=== PATIENT | female | born 1935 | race Caucasian/White ===

== ENCOUNTER 2017-09-02 15:15 | Outpatient (CLI) | payer MEDICARE, BC | END 2017-09-02 15:16 | disposition home or self-care (01) | LOC: BICRAD 15:15 | PROVIDERS: ATTEND Internal Medicine | DX: R06.00 Dyspnea, unspecified (principal); R11.0 Nausea; M47.816 Spondylosis without myelopathy or radiculopathy, lumbar region; M41.126 Adolescent idiopathic scoliosis, lumbar region | CPT/HCPCS: 71020; 74000 ==

== ENCOUNTER 2018-03-19 09:59 | Inpatient (IN) | payer MEDICARE, BC ==
[2018-03-19] MEDS ORDERED: Ondansetron ODT 4 MG TAB ONE (10:36)
[2018-03-19 11:16] LABS: #Eosinphils 0.1 thou/uL (0.0-0.7); #Lymphocytes 1.6 thou/uL (1.20-3.40); #Monocytes 1.3 thou/uL (0.11-0.59); #Neutrophils 15.2 thou/uL (1.40-6.50); %Basophils 0.1 % (0.0-1.0); %Eosinophils 0.3 % (0.0-10.0); %Lymphocytes 8.6 % (21.0-51.0); %Monocytes 7.3 % (0.0-10.0); %Neutrophils 83.8 % (42.0-75.0); Hemoglobin 16.3 g/dL (12.0-16.0); Mean Corpuscular HGB CONC 32.9 g/dL (32.0-36.0); Mean Corpuscular Volume 91.4 fL (78.0-98.0); Mean Platelet Volume 6.5 fL (7.4-10.4); Platelet Count 210 thou/uL (130-400); RBC Distribution Width 12.2 % (11.5-14.5); Red Blood Cell (RBC) Count 5.41 mill/uL (4.20-5.40); White Blood Cell (WBC) Count 18.2 thou/uL (4.8-10.8)
[2018-03-19 11:30] LABS: Bilirubin Negative (Negative); Blood, Urine Negative (Negative); Clarity CLOUDY (Clear); Glucose, Urine (Dipstick) Negative (Negative); Leukocyte Large (Negative); Nitrite Negative (Negative); Protein, Urine (Dipstick) Trace mg/dL (Neg-Trace); Specific Gravity, Urine 1.013 (1.002-1.036); Urobilinogen 0.2 mg/dL (0.2-1.0); pH, Urine 7.5 (5.0-9.0)
[2018-03-19 11:32] LABS: Hyaline Casts/LPF 4-6 HYALINE CAST LPF (0-3 Hyaline); Pathc Cast-AUWi Flag 0.72 (0-2.49)
[2018-03-19 11:44] LABS: ALT (SGPT) 23 U/L (8-55); AST (SGOT) 18 U/L (5-34); Albumin 4.3 g/dL (3.4-4.8); Alkaline Phosphatase 71 U/L (40-150); Anion Gap 12 mmol/L (10-20); BUN (Urea Nitrogen) 18 mg/dL (9.8-20.1); Bilirubin, Total 2.1 mg/dL (0.2-1.2); Calc. Creatinine Clearance 0 mL/min (70-130); Calcium 11.6 mg/dL (7.8-10.44); Carbon Dioxide 34 mmol/L (23-31); Chloride 97 mmol/L (98-107); Estimated GFR-MDRD 44; Globulin 2.8 g/dL (2.4-3.5); Glucose 119 mg/dL (83-110); Lipase 10 U/L (8-78); Potassium 4.1 mmol/L (3.5-5.1); Protein, Total 7.1 g/dL (6.0-8.3); Sodium 139 mmol/L (136-145)
[2018-03-19 11:48] LABS: RBC/HPF None Seen HPF (0-3)
[2018-03-19 11:49] LABS: Bacteria/HPF 3+ HPF (None Seen)
[2018-03-19] MEDS ORDERED: cefTRIAXone\\ROCEPHIN 1 GM VIAL ONE (12:55)
--- NOTE | 2018-03-19 13:02 | CT ---
CT ABDOMEN AND PELVIS WITH CONTRAST: HISTORY: Intermittent abdominal pain since yesterday after lunch with nausea and vomiting four times last nigh t. COMPARISON: None. TECHNIQUE: Multiple contiguous axial images were obtained in a CT of the abdomen and pelvis with contrast. Greta nal reformats were performed and p.o. contrast was administered. FINDINGS: An anastomotic stable line is seen within a loop of small bowel. There is a small bowel feces sign a djacent to this anastomosis. There is slight enlargement of the small bowel loops proximal to this a nastomosis, which may be secondary to a partial small bowel obstruction. Slight inflammatory change is also seen adjacent to the bowel anastomosis. There are scattered diverticula in the colon. The a ppendix is unremarkable. The distal small bowel loops are decompressed. The liver, gallbladder, right kidney, adrenal glands, spleen, and pancreas are unremarkable. A small cyst is seen in the left kidney. No free air is seen in the abdomen or pelvis. A small amount of f ree fluid is seen in the pelvis. A pessary is seen within the vagina. The patient is status post hysterectomy. No abdominal or pelvi c lymphadenopathy is seen. The osseous structures, abdominal wall soft tissues, and visualized inferior thorax are unremarkable. IMPRESSION: 1. The patient has had prior bowel surgery. There appears to be a partial small bowel obstruction a t the anastomosis of the small bowel. 2. Diverticulosis. 3. Left renal cyst. POS: [facility]
[2018-03-19] MEDS ORDERED: Iopamidol 370 76% 50 ML VIAL FS ONE (14:17)
[2018-03-19] MEDS ORDERED: ISOVUE-370 76%-LOCM 1 ML ONE (14:17)
--- NOTE | 2018-03-19 14:18 | RAD ---
CHEST 1 VIEW: Date: 03/19/18 HISTORY: Abdominal pain. COMPARISON: CT of abdomen from same date. FINDINGS: Enteric tube is in place with tip at the gastric body. Lungs are otherwise clear. No pneumothorax or effusion. IMPRESSION: Enteric tube with tip at gastric body. POS: [facility]
[2018-03-19] MEDS: Sodium Chloride 0.9% 1,000 ML IV SCH ×2 (15:20→22:14)
[2018-03-19] MEDS ORDERED: Sodium Chloride 0.9% 1,000 ML IV SCH (15:30)
[2018-03-19] MEDS ORDERED: Ondansetron ODT 4 MG TAB PO PRN (15:40)
[2018-03-19] MEDS ORDERED: cloNIDine 0.1 MG TAB PO PRN (15:40)
[2018-03-19] MEDS ORDERED: hydrALAZINE 20 MG/ML VIAL SLOW IVP PRN (15:40)
[2018-03-19] MEDS ORDERED: Acetaminophen 650 MG Suppository PR PRN (15:40)
[2018-03-19] MEDS ORDERED: Ondansetron HCl/PF 4 MG/2 ML Vial IVP PRN (15:40)
[2018-03-19 16:09] VITALS: BMI 26.9
[2018-03-19] MEDS: Acetaminophen 1,000 MG in Premix Bag 1 BAG IVPB PRN (16:56)
[2018-03-19] MEDS: Ketorolac Tromethamine 30 MG/ML VIAL IVP PRN (16:58)
--- NOTE | 2018-03-19 20:20 | HP ---
DATE OF ADMISSION: 03/19/2018 PRIMARY CARE PROVIDER: Dr. Aminah Wu. CHIEF COMPLAINT: Abdominal pain. HISTORY OF PRESENT ILLNESS: This is an 83-year-old female who presents to [facility] complaining of approximately 24-hour history of increasing midepigastric and abdomi nal pain. The patient states her last meal was approximately at lunch on 03/18/2018, developing incr easing abdominal pain, cramping and nausea with vomiting x4 episodes on 03/18/2018. The patient jacinto ed any hematemesis or blood in the stool or change to her bowel habits. The patient's last bowel mov ement was within the last 24 hours and normal per patient report. The patient denied any travel hist ory, recent trauma, injury, or surgical intervention. The patient does state that she underwent a pr ocedure in 2013 for resection of her colon due to diverticulitis with reanastomosis. The patient sta sarwat she has had no specific difficulty since this time and has been tolerating regular oral intake. The patient denied any change to her chronic medication regimen, diarrhea or family members with seda lar symptoms. The patient denied taking any home remedies and that the pain was relieved by no speci fic change to her activities or position. In the emergency room, the patient underwent general evalu ation including CT of the abdomen and pelvis showing evidence of partial small-bowel obstruction near the previous anastomosis. The patient was given an NG tube with low intermittent wall suctioning an d placed on n.p.o. status. The patient also received IV Rocephin 1 gram after concern for urinary tr act infection with screening urinalysis showing suspicious values. The patient also received Bentyl intramuscularly and intravenous normal saline x1 liter. PAST MEDICAL HISTORY: 1. Meckel's diverticulum. 2. Hypertension. 3. Gastroesophageal reflux disease. 4. Hyperlipidemia. 5. History of perforated small bowel diverticulum. 6. History of cataracts. 7. Seasonal allergies. 8. Trigeminal neuralgia. 9. Degenerative joint disease. PAST SURGICAL HISTORY: 1. Status post right total knee arthroplasty. 2. Status post cataract resection. 3. Status post right carpal tunnel release. 4. Status post left knee arthroscopy. 5. Status post lower lumbar resection. 6. Status post tonsillectomy. 7. Status post laparoscopic small bowel resection due to perforated diverticulum. CURRENT MEDICATIONS: List will need to be obtained by family members and is unavailable currently. ALLERGIES: FENTANYL and HYDROCODONE causing altered mental status. FAMILY HISTORY: Father with history of coronary artery disease, at 78 years of age. Mother without significant medical history. Daughter with colon cancer at age of 49. SOCIAL HISTORY: Patient is , accompanied by her in the hospital. Resides in [place], [place]. Occasional alcohol use. No tobacco or illicit drug use. Functional of all activities o f daily living. REVIEW OF SYSTEMS: The following complete review of systems was negative, unless otherwise mentioned in the HPI or below: Constitutional: Weight loss or gain, ability to conduct usual activities. Skin: Rash, itching. Eyes: Double vision, pain. ENT/Mouth: Nose bleeding, neck stiffness, pain, tenderness. Cardiovascular: Palpitations, dyspnea on exertion, orthopnea. Respiratory: Shortness of breath, wheezing, cough, hemoptysis, fever or night sweats. Gastrointestinal: Poor appetite, abdominal pain, heartburn, nausea, vomiting, constipation, or diarr hea. Genitourinary: Urgency, frequency, dysuria, nocturia. Musculoskeletal: Pain, swelling. Neurologic/Psychiatric: Anxiety, depression. Allergy/Immunologic: Skin rash, bleeding tendency. Otherwise negative except as stated per HPI. PHYSICAL EXAMINATION: VITAL SIGNS: On admission, blood pressure 178/78, pulse 78, respiratory rate 14, temperature 98.1 de grees Fahrenheit, and O2 saturation 95% on room air. GENERAL APPEARANCE: This is an 83-year-old female in mild distress, alert and oriented x3, responsive. HEENT: Pupils are equal, round, and reactive to light and accommodation. Extraocular muscles are in tact. No scleral icterus, no conjunctival injection. Nares patent. NG tube in place. OP is clear. Oral mucosa dry appearing. NECK: Supple, no cervical adenopathy, no thyromegaly, no carotid bruits, no JVD appreciated. Cervic al spine with full active and passive range of motion. No meningeal signs appreciated. CHEST: Lungs are clear to auscultation bilaterally. CARDIOVASCULAR: S1 and S2 without noted murmur, rub or gallop. ABDOMEN: Mild tenderness to palpation in the midepigastric region. No rebound or guarding. No palp able mass. Bowel sounds diminished. EXTREMITIES: Warm and dry with fair turgor. No clubbing, cyanosis or asymmetric edema appreciated. Pulses palpable distally at the dorsalis pedis, posterior tibial, and popliteal arteries bilaterally . Capillary refill is less than 2 seconds. NEUROLOGIC: Cranial nerves II-XII are grossly intact. No focal or lateralizing signs appreciated. IMAGING DATA AND PERTINENT LABORATORY DATA: CT of the abdomen and pelvis dated 03/19/2018 showed par tial small-bowel obstruction at the anastomosis in the small bowel. Diverticulosis noted. Portable chest x-ray dated 03/19/2018 showed enteric tube with the tip at the gastric body. Sodium 139, potas sium 4.1, chloride 97, CO2 of 34, BUN 18, creatinine 1.17, estimated GFR of 44, glucose 119, calcium 11.6, total bilirubin 2.1, AST 18, ALT 23, alkaline phosphatase 71, albumin 4.3, and lipase 10. CBC showed a white blood cell count of 18.2, hemoglobin 16, hematocrit 49, platelet count 210 with 84% ne utrophilia. Urinalysis showed large leukocyte esterase with greater than 50 to too numerous to count WBCs per high power field, 4-6 squamous epithelial cells noted, 3+ bacteria. ASSESSMENT AND PLAN: 1. Small-bowel obstruction. The patient will be admitted to the surgical [facility]. Continue NG tube wi th low intermittent wall suctioning and n.p.o. status. Pain control with OFIRMEV 1 gram every 6 p.r. n. and Toradol 30 mg IV q.6 hours p.r.n. We will consult General Surgery Service in the a.m. for any further recommendations. Suspect conservative management. We will assist with correction of curren t condition. 2. Abdominal pain secondary to #1. See #1 above for treatment options and management. Serial abdom inal exams. 3. Acute kidney injury. Suspect secondary to volume depletion. We will continue intravenous normal saline at 125 mL per hour. Avoid nephrotoxic agents and contrast media. Repeat creatinine in the a .m. 4. Urinary tract infection. Suspected given initial urinalysis. We will continue Rocephin 2 grams IV q.24 hours and await final urine culture results. Continue IV fluids as outlined previously. 5. Hypercalcemia. Suspect secondarily to present #1 and in conjunction with acute kidney injury. W e will continue intravenous fluids as outlined previously and repeat calcium level in the a.m. 6. Prophylaxis. Sequential compression devices while in bed. Pepcid 20 mg IV q.12 hours. 7. Code status is FULL. Surrogate medical decision maker is patient's spouse.
--- NOTE | 2018-03-19 22:26 | CON ---
DATE OF CONSULTATION: 03/19/2018 CHIEF COMPLAINT: Abdominal pain, nausea, vomiting. HISTORY OF PRESENT ILLNESS: This is an 83-year-old female, who I previously did perform small bowel resection for perforated small bowel diverticulum. She has done quite well. Her postop course was u neventful. Now, she presents with a one-day history of abdominal distention, nausea, vomiting, and p ain. She had NG tube placed in the emergency room after CT showed a small bowel obstruction. She is starting to feel better, had a normal bowel movement yesterday morning, not passing any gas. Denies chronic abdominal pain. PAST MEDICAL HISTORY: Small bowel diverticulum. No history of coronary artery disease, diabetes, [place] PD. PAST SURGICAL HISTORY: Includes small bowel resection. MEDICATIONS TAKEN DAILY: None. ALLERGIES: HYDROCODONE. SOCIAL HISTORY: No smoking, alcohol, or other drugs. REVIEW OF SYSTEMS: Ten-system review of systems is otherwise negative unless described above. FAMILY HISTORY: Noncontributory to GI malignancy or anesthetic-related complication. PHYSICAL EXAMINATION: VITAL SIGNS: Blood pressure 185/77, pulse 62, respirations 18. She is afebrile. HEENT: Sclerae anicteric. Oropharynx clear. NECK: No lymphadenopathy. CHEST: Clear. HEART: Regular rate and rhythm. ABDOMEN: Soft, minimally distended. Minimal tenderness to the left of midline with localized guardi ng without rebound. No peritoneal signs. Well-healed abdominal incisions without hernia. EXTREMITIES: No ischemia or edema to extremities. LABORATORY DATA: White blood cell count is 18, hemoglobin 16, platelet count is 210. Sodium 139, po tassium 4.1, creatinine 1.17. Bilirubin elevated at 2.1. CT scan reveals evidence of small bowel ob struction at the level of the anastomosis. ASSESSMENT: Small bowel obstruction likely secondary to adhesions near previous anastomosis. PLAN: NG tube, n.p.o. Expect improvement in the next 24-48 hours. If not markedly improved by Sarah birch, she will need Gastrografin small bowel follow through.
[2018-03-20] MEDS: Ketorolac Tromethamine 30 MG/ML VIAL IVP PRN (05:13)
[2018-03-20] MEDS: Acetaminophen 1,000 MG in Premix Bag 1 BAG IVPB PRN (05:13)
[2018-03-20 06:17] LABS: Band 4 % (5-11); Eosinophils 1 % (0-10); Hemoglobin 14.2 g/dL (12.0-16.0); Lymphocytes 4 % (21-51); MDiff Complete? YES; Mean Corpuscular HGB CONC 33.1 g/dL (32.0-36.0); Mean Corpuscular Hemoglobin 30.4 pg (27.0-31.0); Mean Platelet Volume 6.5 fL (7.4-10.4); Monocytes 1 % (0-10); Neutrophil 90 % (42-75); Platelet Count 153 thou/uL (130-400); RBC Distribution Width 11.9 % (11.5-14.5); Red Blood Cell (RBC) Count 4.67 mill/uL (4.20-5.40); White Blood Cell (WBC) Count 10.6 thou/uL (4.8-10.8)
[2018-03-20 06:18] LABS: ALT (SGPT) 16 U/L (8-55); AST (SGOT) 13 U/L (5-34); Albumin 3.8 g/dL (3.4-4.8); Alkaline Phosphatase 59 U/L (40-150); Anion Gap 13 mmol/L (10-20); BUN (Urea Nitrogen) 20 mg/dL (9.8-20.1); Calc. Creatinine Clearance 46 mL/min (70-130); Carbon Dioxide 31 mmol/L (23-31); Chloride 102 mmol/L (98-107); Estimated GFR-MDRD 51; Globulin 2.1 g/dL (2.4-3.5); Glucose 117 mg/dL (83-110); Potassium 3.6 mmol/L (3.5-5.1); Protein, Total 5.9 g/dL (6.0-8.3); Sodium 142 mmol/L (136-145)
[2018-03-20] MEDS: cefTRIAXone\\ROCEPHIN 2 GM in Sodium Chloride 0.9% 100 ML IVPB SCH (08:59)
[2018-03-20] MEDS: Sodium Chloride 0.9% 1,000 ML IV SCH ×3 (09:01→23:19)
[2018-03-20] MEDS: Famotidine/PF 20 mg/2ml Vial SLOW IVP SCH (12:00)
--- NOTE | 2018-03-20 13:24 | PRG ---
DATE OF SERVICE: 03/20/2018 Ms. Perez feels fine today. She is not passing gas. She still has some bloating, no nausea. PHYSICAL EXAMINATION: VITAL SIGNS: Overnight her vital signs are stable. Her pulse is 60, respirations 14, temperature is 97.4, blood pressure 131/57. NG output is 700 overnight. No bowel movements. CHEST: Clear. HEART: Regular rate and rhythm. ABDOMEN: Soft, still minimally distended, especially on the left side with left-sided tenderness, wi thout guarding or rebound. No diffuse peritoneal signs, decreased bowel sounds in all 4 quadrants. LABORATORY DATA: White cell count is 10, hemoglobin 14, platelets are 153. She has 90 neutrophils, 4 bands. Creatinine is 1.04. ASSESSMENT: Small-bowel obstruction secondary to adhesions in area of previous anastomosis. PLAN: Continue NG tube and IV fluids today. Tomorrow we will order Gastrografin small bowel follow through to be done first thing. Dr. Peña is going to be covering for me tomorrow.
--- NOTE | 2018-03-20 15:05 | PDOC.PN ---
- Subjective Encounter Start Date: 03/20/18 Encounter Start Time: 15:00 Subjective: f/u for SBO tx with NGT and NPO. Abd pain improved with NGT. -: States hungry. - Objective Resuscitation Status: Resuscitation Status FULL:Full Resuscitation MAR Reviewed: Yes Vital Signs & Weight: Vital Signs (12 hours) Temp Pulse Resp BP Pulse Ox 03/20/18 12:03 97.4 F L 60 14 131/57 L 96 03/20/18 07:40 98.7 F 73 18 127/68 91 L 03/20/18 04:01 98.7 F 67 16 129/65 94 L Weight Admit Weight 152 lb 1.888 oz Weight 152 lb 1.888 oz I&O: 03/19/18 03/20/18 03/21/18 06:59 06:59 06:59 Intake Total 2100 Output Total 700 Balance 1400 Result Diagrams: 03/20/18 05:29 03/20/18 05:29 Additional Labs: Microbiology 03/19/18 11:06 Urine clean catch Urine Culture - Preliminary Laboratory Tests 03/19/18 03/19/18 11:12 11:12 WBC 18.2 H Hgb 16.3 H Carbon Dioxide 34 H Creatinine 1.17 H Calcium 11.6 H Total Bilirubin 2.1 H Phys Exam - Physical Examination Constitutional: NAD NGT in place HEENT: PERRLA, sclera anicteric, oral pharynx no lesions Neck: no nodes, no JVD, supple, full ROM Respiratory: no wheezing, no rales, no rhonchi, clear to auscultation bilateral S1, S2 Cardiovascular: RRR, no significant murmur, no rub, gallop mild TTP mid-epigastric region, LUQ mild distention, diminished in all quadrants Gastrointestinal: soft Musculoskeletal: no edema, pulses present Neurological: non-focal, normal sensation, moves all 4 limbs Psychiatric: normal affect, A&O x 3 Skin: no rash, normal turgor, cap refill <2 seconds Dx/Plan (1) SBO (small bowel obstruction) Code(s): K56.609 - UNSP INTESTNL OBST, UNSP TO PARTIAL VERSUS COMPLETE OBST Status: Acute Comment: Continue NGT LIWS, consider Gastrograffin in am if not improving (2) Abdominal pain Code(s): R10.9 - UNSPECIFIED ABDOMINAL PAIN Status: Acute Qualifiers: Abdominal location: generalized Qualified Code(s): R10.84 - Generalized abdominal pain Comment: Secondary to #1, see above, pain control as clinically indicated (3) RAJIV (acute kidney injury) Code(s): N17.9 - ACUTE KIDNEY FAILURE, UNSPECIFIED Status: Acute Comment: Improved with IVF hydration, avoid nephrotoxic meds and limit contrast exposure , serial creatinine (4) UTI (urinary tract infection) Status: Suspected Comment: Ucx pending, continue Rocephin pending cx results (5) Hypercalcemia Code(s): E83.52 - HYPERCALCEMIA Status: Acute Comment: Improved with IVF's, continue serial monitoring - Plan out of bed/ambulate, DVT proph w/SCDs Stable overall -: Continue NGT LIWS -: Ice chips -: OOB/ambulate -: Continue IVF's * Gastrograffin SBFT in am * AM lab: CMP, CBC
[2018-03-21 05:42] LABS: ALT (SGPT) 14 U/L (8-55); AST (SGOT) 13 U/L (5-34); Albumin 3.1 g/dL (3.4-4.8); Alkaline Phosphatase 42 U/L (40-150); Anion Gap 8 mmol/L (10-20); BUN (Urea Nitrogen) 24 mg/dL (9.8-20.1); Bilirubin, Total 1.1 mg/dL (0.2-1.2); Calc. Creatinine Clearance 63 mL/min (70-130); Calcium 8.7 mg/dL (7.8-10.44); Carbon Dioxide 28 mmol/L (23-31); Chloride 110 mmol/L (98-107); Estimated GFR-MDRD 73; Globulin 1.8 g/dL (2.4-3.5); Glucose 78 mg/dL (83-110); Potassium 3.3 mmol/L (3.5-5.1); Protein, Total 4.9 g/dL (6.0-8.3); Sodium 143 mmol/L (136-145)
[2018-03-21] MEDS: cefTRIAXone\\ROCEPHIN 2 GM in Sodium Chloride 0.9% 100 ML IVPB SCH (08:34)
[2018-03-21] MEDS: Ketorolac Tromethamine 30 MG/ML VIAL IVP PRN ×2 (08:37→15:02)
[2018-03-21] MEDS: Famotidine/PF 20 mg/2ml Vial SLOW IVP SCH (08:38)
[2018-03-21 08:57] LABS: Band 4 % (5-11); Eosinophils 1 % (0-10); Hemoglobin 11.5 g/dL (12.0-16.0); Lymphocytes 17 % (21-51); MDiff Complete? YES; Mean Corpuscular HGB CONC 33.2 g/dL (32.0-36.0); Mean Corpuscular Hemoglobin 30.7 pg (27.0-31.0); Mean Corpuscular Volume 92.7 fL (78.0-98.0); Monocytes 14 % (0-10); Neutrophil 64 % (42-75); PLT Morphology Comment Appears Decreased; Platelet Count 126 thou/uL (130-400); RBC Distribution Width 11.9 % (11.5-14.5); Red Blood Cell (RBC) Count 3.73 mill/uL (4.20-5.40); White Blood Cell (WBC) Count 6.3 thou/uL (4.8-10.8)
[2018-03-21] MEDS: Sodium Chloride 0.9% 1,000 ML IV SCH (10:36)
[2018-03-21] MEDS: Potassium Chloride 20 MEQ in Lactated Ringer's 1,000 ML IV SCH ×2 (12:03→19:51)
[2018-03-21] MEDS ORDERED: MD-Gastroview 120 ML BOT ONE (12:09)
--- NOTE | 2018-03-21 13:18 | PDOC.PN ---
- Subjective Encounter Start Date: 03/21/18 Encounter Start Time: 13:00 Subjective: f/u for SBO with SBFT in progress. Pt states increased abd pain, bloating -: and no BM. Awaiting further imaging this pm. - Objective Resuscitation Status: Resuscitation Status FULL:Full Resuscitation MAR Reviewed: Yes Vital Signs & Weight: Vital Signs (12 hours) Temp Pulse Resp BP Pulse Ox 03/21/18 08:30 98.3 F 46 L 12 03/21/18 07:28 98.3 F 46 L 12 119/64 96 03/21/18 04:09 97.5 F L 53 L 14 123/61 95 Weight Admit Weight 152 lb 1.888 oz Weight 152 lb 5.431 oz I&O: 03/20/18 03/21/18 03/22/18 06:59 06:59 06:59 Intake Total 2100 3350 Output Total 700 750 Balance 1400 2600 Result Diagrams: 03/21/18 04:44 03/21/18 04:44 Additional Labs: Microbiology 03/19/18 11:06 Urine clean catch Urine Culture - Final 03/19/18 11:06 Urine clean catch Urine Culture - Preliminary Laboratory Tests 03/19/18 03/19/18 03/20/18 11:12 11:12 05:29 WBC 18.2 H Hgb 16.3 H Potassium 3.6 Carbon Dioxide 34 H Creatinine 1.17 H Calcium 11.6 H Total Bilirubin 2.1 H 03/20/18 05:29 WBC 10.6 Hgb Potassium Carbon Dioxide Creatinine Calcium Total Bilirubin Radiology Reviewed by me: Yes (SBFT - large contrast in small bowel, incomplete imaging) Phys Exam - Physical Examination mod distress, NGT in place HEENT: PERRLA, sclera anicteric, oral pharynx no lesions Neck: no nodes, no JVD, supple, full ROM Respiratory: no wheezing, no rales, no rhonchi, clear to auscultation bilateral S1, S2 Cardiovascular: RRR, no significant murmur, no rub, gallop distended, diminished bowel sounds, TTP diffusely Musculoskeletal: no edema, pulses present Neurological: non-focal, normal sensation, moves all 4 limbs Psychiatric: normal affect, A&O x 3 Skin: no rash, normal turgor, cap refill <2 seconds Dx/Plan (1) SBO (small bowel obstruction) Code(s): K56.609 - UNSP INTESTNL OBST, UNSP TO PARTIAL VERSUS COMPLETE OBST Status: Acute Comment: Continue NGT LIWS, Gastrograffin in progress, appears to still have obstructive process, pain control with Ofirmev and Toradol (2) Abdominal pain Code(s): R10.9 - UNSPECIFIED ABDOMINAL PAIN Status: Acute Qualifiers: Abdominal location: generalized Qualified Code(s): R10.84 - Generalized abdominal pain Comment: Secondary to #1, see above, pain control as clinically indicated (3) RAJIV (acute kidney injury) Code(s): N17.9 - ACUTE KIDNEY FAILURE, UNSPECIFIED Status: Acute Comment: Improved with IVF hydration, avoid nephrotoxic meds and limit contrast exposure , serial creatinine (4) UTI (urinary tract infection) Status: Suspected Comment: Ucx pending, continue Rocephin pending cx results (5) Hypercalcemia Code(s): E83.52 - HYPERCALCEMIA Status: Acute Comment: Improved with IVF's, continue serial monitoring - Plan plan discussed w/ family, continue antibiotics, social worker, out of bed/ ambulate, DVT proph w/SCDs Stable overall -: Gastrograffin with SBFT in progress -: Pain control with Ofirmev and Toradol -: Continue IVF's -: AM lab: BMP, CBC * .
[2018-03-21] MEDS: Acetaminophen 1,000 MG in Premix Bag 1 BAG IVPB SCH ×2 (13:42→20:53)
--- NOTE | 2018-03-21 16:51 | RAD ---
SMALL BOWEL FOLLOW THROUGH: 03/21/18 HISTORY: Small bowel obstruction. COMPARISON: CT Abdomen and pelvis 03/19/18. FINDINGS: The contrast was given through the enteric tube. There is marked dilatation of the stomach and proxim al small bowel. After six hours there was contrast extending to the decompressed small bowel. IMPRESSION: Delayed contrast transit likely a partial small bowel obstruction. Contrast is seen in the decompress ed small bowel after six hours. POS: [facility]
[2018-03-21] MEDS ORDERED: Acetaminophen 1,000 MG in Premix Bag 1 BAG IVPB SCH (18:00)
--- NOTE | 2018-03-22 00:53 | PRG ---
DATE OF SERVICE: 03/21/2018 SUBJECTIVE: Ms. Perez had a small bowel follow through today. She is tremendously dilated small benja wel and stomach. She suffered nausea and vomiting, recurrence of her pain she had before surgery. N G tube was placed back to suction given her some relief. She has not had a bowel movement or passed gas. There is some contrast did make it through to the distal bowel. OBJECTIVE: LUNGS: Clear to auscultation. CARDIAC: Regular rate and rhythm without murmur or gallop. ABDOMEN: Soft, mildly distended plus hyperactive bowel sounds. LABORATORY: White count 6, hemoglobin 11.5. Basic metabolic profile unremarkable except potassium 3 .3. ASSESSMENT AND PLAN: High-grade partial bowel obstruction. We would repeat her abdominal x-rays in the morning, repeat her labs. It is likely that she will need a laparotomy tomorrow. We will check her x-rays in the morning and and if necessary, she may need a laparoscopic or open laparotomy under general anesthesia with a tap block.
[2018-03-22] MEDS: Potassium Chloride 20 MEQ in Lactated Ringer's 1,000 ML IV SCH ×2 (03:31→10:06)
[2018-03-22] MEDS: Acetaminophen 1,000 MG in Premix Bag 1 BAG IVPB SCH ×3 (03:31→16:31)
[2018-03-22 04:56] LABS: #Lymphocytes 1.3 thou/uL (1.20-3.40); #Monocytes 0.6 thou/uL (0.11-0.59); #Neutrophils 6.1 thou/uL (1.40-6.50); %Basophils 0.2 % (0.0-1.0); %Eosinophils 0.4 % (0.0-10.0); %Lymphocytes 16.1 % (21.0-51.0); %Monocytes 6.9 % (0.0-10.0); %Neutrophils 76.4 % (42.0-75.0); Hemoglobin 11.3 g/dL (12.0-16.0); Mean Corpuscular HGB CONC 34.7 g/dL (32.0-36.0); Mean Corpuscular Hemoglobin 31.5 pg (27.0-31.0); Mean Corpuscular Volume 90.8 fL (78.0-98.0); Mean Platelet Volume 6.9 fL (7.4-10.4); Platelet Count 120 thou/uL (130-400); RBC Distribution Width 11.8 % (11.5-14.5); Red Blood Cell (RBC) Count 3.57 mill/uL (4.20-5.40)
[2018-03-22 05:30] LABS: Anion Gap 11 mmol/L (10-20); BUN (Urea Nitrogen) 31 mg/dL (9.8-20.1); Calc. Creatinine Clearance 62 mL/min (70-130); Calcium 9.1 mg/dL (7.8-10.44); Carbon Dioxide 28 mmol/L (23-31); Chloride 113 mmol/L (98-107); Estimated GFR-MDRD 71; Glucose 98 mg/dL (83-110); Potassium 3.7 mmol/L (3.5-5.1); Sodium 148 mmol/L (136-145)
--- NOTE | 2018-03-22 09:18 | RAD ---
TWO VIEWS OF THE ABDOMEN: COMPARISON: Small bowel follow through 03/21/18. HISTORY: Small bowel obstruction. Followup exam. FINDINGS: Two views of the abdomen show a nonspecific, nonobstructed bowel gas pattern. The contrast has all p assed through the small bowel and the remaining contrast is only seen within the colon. An NG tube i s seen in the stomach. No dilated loops of small bowel are seen on this exam. IMPRESSION: The contrast has passed through the small bowel into the colon. The findings on CT and prior small b owel follow through were likely secondary to a partial small bowel obstruction. POS: [facility]
[2018-03-22] MEDS: Famotidine/PF 20 mg/2ml Vial SLOW IVP SCH (09:57)
[2018-03-22] MEDS: cefTRIAXone\\ROCEPHIN 2 GM in Sodium Chloride 0.9% 100 ML IVPB SCH (09:58)
[2018-03-22] MEDS ORDERED: Potassium Chloride 20 MEQ in Lactated Ringer's 1,000 ML IV SCH (11:48)
--- NOTE | 2018-03-22 15:15 | PDOC.PN ---
- Subjective Encounter Start Date: 03/22/18 Encounter Start Time: 15:00 Subjective: f/u for SBO with prior NGT now d/c'd and starting full liquids. -: Feels much better today. - Objective Resuscitation Status: Resuscitation Status FULL:Full Resuscitation MAR Reviewed: Yes Vital Signs & Weight: Vital Signs (12 hours) Temp Pulse Resp BP Pulse Ox 03/22/18 11:33 98.5 F 40 L 16 149/55 H 94 L 03/22/18 07:00 98.3 F 42 L 14 152/57 H 97 03/22/18 04:00 98.2 F 56 L 16 147/75 H 97 Weight Admit Weight 152 lb 1.888 oz Weight 152 lb 5.431 oz I&O: 03/21/18 03/22/18 03/23/18 06:59 06:59 06:59 Intake Total 3350 2665 Output Total 750 2550 Balance 2600 115 Result Diagrams: 03/22/18 04:12 03/22/18 04:12 Radiology Reviewed by me: Yes (ABD x-ray - contrast noted in colon) Phys Exam - Physical Examination Constitutional: NAD HEENT: PERRLA, sclera anicteric, oral pharynx no lesions Neck: no nodes, no JVD, supple, full ROM Respiratory: no wheezing, no rales, no rhonchi, clear to auscultation bilateral S1, S2 Cardiovascular: RRR, no significant murmur, no rub, gallop Gastrointestinal: soft, non-tender, no distention, positive bowel sounds Musculoskeletal: no edema, pulses present Neurological: non-focal, normal sensation, moves all 4 limbs Psychiatric: normal affect, A&O x 3 Skin: no rash, normal turgor, cap refill <2 seconds Dx/Plan (1) SBO (small bowel obstruction) Code(s): K56.609 - UNSP INTESTNL OBST, UNSP TO PARTIAL VERSUS COMPLETE OBST Status: Acute Comment: Resolving by exam and radiographically, full liquids today (2) Abdominal pain Code(s): R10.9 - UNSPECIFIED ABDOMINAL PAIN Status: Acute Qualifiers: Abdominal location: generalized Qualified Code(s): R10.84 - Generalized abdominal pain Comment: Secondary to #1, resolved (3) RAJIV (acute kidney injury) Code(s): N17.9 - ACUTE KIDNEY FAILURE, UNSPECIFIED Status: Acute Comment: Improved with IVF hydration, avoid nephrotoxic meds and limit contrast exposure , serial creatinine (4) UTI (urinary tract infection) Status: Suspected Comment: Ucx without dominant organism, d/c Rocephin (5) Hypercalcemia Code(s): E83.52 - HYPERCALCEMIA Status: Acute Comment: Improved with IVF's, continue serial monitoring - Plan out of bed/ambulate, DVT proph w/SCDs Stable overall -: Continue supportive mgmt -: Saline lock IVF -: Full liquids advancing as tolerated -: Resume Lisinopril and Metoprolol * Likely home in am
[2018-03-22] MEDS: Acetaminophen 500 MG TAB PO PRN ×2 (16:47→21:49)
[2018-03-22] MEDS ORDERED: Atorvastatin Calcium 20 MG TAB PO SCH (21:00)
[2018-03-22] MEDS: Calcium Carbonate + Vit D 1 TAB PO SCH (21:23)
[2018-03-22] MEDS: Gabapentin 300 MG CAP PO SCH (21:23)
--- NOTE | 2018-03-22 21:37 | PRG ---
DATE OF SERVICE: 03/22/2018 SUBJECTIVE: Ms. Perez is doing well. She is tolerating her diet without problems. She has had bow el movements. She has not had any nausea or vomiting. Small bowel follow through was normal. She h ad a large bowel movement, she has had several since that time. PHYSICAL EXAMINATION: VITAL SIGNS: 98.4 degrees, heart rate 42, 16, 159/76. HEENT: Unremarkable. LUNGS: Clear to auscultation. CARDIAC: Regular rate and rhythm without murmur, gallop or rub. ABDOMEN: Soft. Mild distention, but nontender. Bowel sounds present. Multiple bowel movements as noted above. EXTREMITIES: Unremarkable. ASSESSMENT AND PLAN: Resolved partial bowel obstruction. After tolerating diet today, she can be di scharged home tomorrow. She will follow up with Dr. Mcguire in about 2 weeks.
[2018-03-23] MEDS ORDERED: Acetaminophen 650 MG Suppository PR PRN (00:01)
[2018-03-23 08:10] VITALS: BP 145/67; TEMP 97.9
[2018-03-23] MEDS: Calcium Carbonate + Vit D 1 TAB PO SCH (08:38)
[2018-03-23] MEDS: Gabapentin 300 MG CAP PO SCH (08:38)
[2018-03-23] MEDS ORDERED: Aspirin 81 mg Enteric Coated Tablet PO SCH (09:00)
[2018-03-23] MEDS ORDERED: Docusate 100 MG CAP PO SCH (09:00)
[2018-03-23] MEDS ORDERED: Lisinopril 10 MG TAB PO SCH (09:00)
[2018-03-23] MEDS ORDERED: Loratadine/Pseudoephedrine 10/240 mg Tablet PO SCH (09:00)
--- NOTE | 2018-03-23 20:17 | DIS ---
DATE OF ADMISSION: 03/19/2018 DATE OF DISCHARGE: 03/23/2018 DISCHARGE DIAGNOSES: 1. Small-bowel obstruction, resolving. 2. Abdominal pain secondary to small-bowel obstruction, resolved. 3. Acute kidney injury, resolved. 4. Hypercalcemia secondary to dehydration and acute kidney injury, resolved. CONSULTATIONS: Dr. Mcguire and Dr. Peña with General Surgery Service. PERTINENT LAB AND X-RAY FINDINGS: Sodium ranged between 139-148, potassium ranged between 3.3-4.1, c reatinine ranged between 0.76-1.17, estimated GFR ranged between 44-73, calcium ranged between 8.7-11 .6, total bilirubin ranged between 1.1-2.1. Lipase 10. CBC showed a white blood cell count ranging between 6.3-18.2, hemoglobin ranged between 11.3-16.3. Urine culture dated 03/19/2018 showed less th an 10,000 colonies of mixed skin live. CT of the abdomen and pelvis dated 03/19/2018 showed partial small-bowel obstruction at the anastomosis of the small bowel. Diverticulosis noted. Portable ches t x-ray dated 03/19/2018 showed enteric tube with the tip at the gastric body. Small bowel follow-th rough dated 03/21/2018 showed delayed contrast transit, likely suggesting a partial small-bowel obstr uction. Abdominal radiographs dated 03/22/2018 showed contrast in the colon. Resolving partial smal l-bowel obstruction. HOSPITAL COURSE: The patient was admitted to the [facility] after initially presenting with incre ased abdominal pain with associated nausea and vomiting. The patient underwent CT imaging of the abd omen showing partial bowel obstruction, at which point an NG tube was placed. The patient had return of large amount of gastric contents and continued on NG tube with low intermittent wall suctioning a nd evaluated by the General Surgery Service. The patient was conservatively managed, given IV fluids as well as antiemetics and IV pain medications. The patient had overall resolution of the partial s mall-bowel obstruction with conservative management. The patient was noted with mild acute kidney in jury secondarily to dehydration, treated with IV fluids and resolving by the time of discharge. Over all, the patient did remain clinically stable throughout the hospital course, advancing diet and tole rating clear liquids with eventual regular diet prior to discharge. On the day of discharge, I have examined the patient and discussed pertinent followup instructions, which point the patient verbalize d understanding and agreement. The patient is ready for discharge 03/23/2018. DISCHARGE MEDICATIONS: 1. Aspirin enteric coated 81 mg p.o. daily. 2. Lipitor 20 mg p.o. at bedtime. 3. Calcium carbonate 1200 mg p.o. b.i.d. 4. Vitamin D3 2000 units p.o. daily. 5. Colace 100 mg p.o. daily. 6. Neurontin 600 mg p.o. b.i.d. 7. Lisinopril 10 mg p.o. daily. 8. Metoprolol succinate 25 mg p.o. at bedtime. FOLLOWUP: The patient to follow up with her primary care provider, Dr. Aminah Wu within 7 da ys of discharge. The patient will follow up with Dr. Mcguire 2-3 weeks after discharge and to call h is office for appointment time and date. CONDITION ON DISCHARGE: Stable. ACTIVITY: Ad erwin. DIET: Heart healthy. CODE STATUS: Full. DISPOSITION: Home, 03/23/2018.
== END 2018-03-23 11:08 | disposition home or self-care (01) | DRG 389 ==
LOC: ERS 09:59 → SURG B 14:47
PROVIDERS: ADMIT Family Medicine; ATTEND Family Medicine
DX: K56.609 Unspecified intestinal obstruction, unspecified as to partial versus complete obstruction (principal); N17.9 Acute kidney failure, unspecified; N39.0 Urinary tract infection, site not specified; K21.9 Gastro-esophageal reflux disease without esophagitis; I10 Essential (primary) hypertension; J30.2 Other seasonal allergic rhinitis; J44.9 Chronic obstructive pulmonary disease, unspecified; I25.10 Atherosclerotic heart disease of native coronary artery without angina pectoris; Q43.0 Meckel's diverticulum (displaced) (hypertrophic); M19.90 Unspecified osteoarthritis, unspecified site; G50.0 Trigeminal neuralgia; Z96.651 Presence of right artificial knee joint; Z79.899 Other long term (current) drug therapy; Z88.8 Allergy status to other drugs, medicaments and biological substances; Z88.5 Allergy status to narcotic agent; E83.52 Hypercalcemia; E87.6 Hypokalemia
CPT/HCPCS: 36415; 71045; 74019; 74177; 74250; 80048; 80053; 81003; 81015; 83690; 85007; 85025; 85027; 87086; 96361; 96365; 96372; A4216; J0131; J0696; J1885; J2405; J3480; J7050; J7120; Q0162; S0028

== ENCOUNTER 2018-05-06 10:03 | Outpatient (CLI) | payer MEDICARE, BC | END 2018-05-06 10:04 | disposition home or self-care (01) | LOC: BICMAMMO 10:03 | PROVIDERS: ATTEND Internal Medicine | DX: Z12.31 Encounter for screening mammogram for malignant neoplasm of breast (principal) | CPT/HCPCS: 77063; 77067 ==

== ENCOUNTER 2018-08-12 16:38 | Outpatient (CLI) | payer MEDICARE, BC ==
--- NOTE | 2018-08-12 18:55 | RAD ---
TWO VIEWS OF THE CHEST: 08/12/18 COMPARISON: None. HISTORY: Fall on the right side on Saturday with right chest pain. FINDINGS: Two views of the chest show normal sized cardiomediastinal silhouette. There is no evidence of consol idation, mass, or pleural effusion. The bones are unremarkable. IMPRESSION: No evidence of acute cardiopulmonary disease. POS: [facility]
--- NOTE | 2018-08-12 18:56 | RAD ---
TWO VIEWS OF THE RIGHT HUMERUS 08/12/18 COMPARISON: None. HISTORY: Right arm pain after falling on right side. FINDINGS: Two views of the right humerus shows no evidence of acute fracture or dislocation. Moderate degenerat thais changes are seen in the right shoulder joint. IMPRESSION: No evidence of acute osseous abnormality. POS: [facility]
--- NOTE | 2018-08-12 18:58 | RAD ---
AP AND OBLIQUE VIEWS RIGHT RIBS: 08/12/18 HISTORY: Fall with right sided pain. AP and oblique views right ribs obtained. Images demonstrate acute fractures involving the right distal third rib as well as the possible dista l fourth rib, fifth rib, definitely sixth rib and seventh ribs. No definite evidence of hemo or pneumothorax seen. IMPRESSION: Findings concerning for right third through seventh rib fractures. POS: [facility]
== END 2018-08-12 16:39 | disposition home or self-care (01) ==
LOC: BICRAD 16:38
PROVIDERS: ATTEND Internal Medicine
DX: S51.811A Laceration without foreign body of right forearm, initial encounter (principal); R07.9 Chest pain, unspecified
CPT/HCPCS: 71046

== ENCOUNTER 2019-05-11 08:59 | Outpatient (CLI) | payer MEDICARE, BC ==
--- NOTE | 2019-05-11 09:38 | MMO ---
Bilateral MAMMO Bilat Screen [facility]. CLINICAL HISTORY: Patient is 84 years old and is seen for screening. The patient has no family history of breast cancer. The patient has no personal history of cancer. VIEWS: The views performed were: bilateral craniocaudal with tomosynthesis and bilateral mediolateral oblique with tomosynthesis. FILMS COMPARED: The present examination has been compared to prior imaging studies performed at [facility] on 03/22/2015, 04/11/2016, 05/03/2017 and 05/06/2018. MAMMOGRAM FINDINGS: There are scattered fibroglandular densities. There are stable benign appearing calcifications seen in both breasts. There are no suspicious masses, suspicious calcifications, or new areas of architectural distortion. IMPRESSION: THERE IS NO MAMMOGRAPHIC EVIDENCE OF MALIGNANCY. A ROUTINE FOLLOW-UP MAMMOGRAM IN 1 YEAR IS RECOMMENDED. THE RESULTS OF THIS EXAM WERE SENT TO THE PATIENT. ACR BI-RADS Category 2 - Benign finding MAMMOGRAPHY NOTE: 1. A negative mammogram report should not delay a biopsy if a dominant of clinically suspicious mass is present. 2. Approximately 10% to 15% of breast cancers are not detected by mammography. 3. Adenosis and dense breasts may obscure an underlying neoplasm. Reported by: DIAMOND SOFIA MD Electonically Signed: [id number]
--- NOTE | 2019-05-11 11:16 | BD ---
DEXA BONE MINERAL DENSITY STUDY: HISTORY: Other disorder of bone density and structure, multiple. COMPARISON: None. FINDINGS: Lumbar Spine: BMD (g/cm2) L1 1.082 T-Score: 0.8 3.3 L2 1.140 T-Score: 1.0 3.7 L3 1.082 T-Score: 0.0 2.8 L4 1.050 T-Score: -0.1 2.9 L1-L4 1.089 T-Score: 0.4 3.1 Femoral Neck: 0.619 T-Score: -2.2 0.2 Total Femur: 0.740 T-Score: -1.7 0.5 WHO classification osteopenia. TEN-year fracture risk: Major osteoporotic fracture 40% and hip fracture 27%. Impression: Osteopenia with elevated fracture risk as above. POS: [facility]
== END 2019-05-11 09:00 | disposition home or self-care (01) ==
LOC: BICMAMMO 08:59
PROVIDERS: ATTEND Internal Medicine
DX: Z12.31 Encounter for screening mammogram for malignant neoplasm of breast (principal); N95.9 Unspecified menopausal and perimenopausal disorder; M85.859 Other specified disorders of bone density and structure, unspecified thigh
CPT/HCPCS: 77063; 77067; 77080

== ENCOUNTER 2021-02-17 09:14 | Outpatient (CLI) | payer MEDICARE, BC | END 2021-02-17 09:15 | disposition home or self-care (01) | LOC: BICMRI 09:14 | PROVIDERS: ATTEND Nurse Practitioner Acute Care | DX: M47.22 Other spondylosis with radiculopathy, cervical region (principal); M47.26 Other spondylosis with radiculopathy, lumbar region; M51.16 Intervertebral disc disorders with radiculopathy, lumbar region | CPT/HCPCS: 72141; 72148 ==

== ENCOUNTER 2021-05-19 09:06 | Outpatient (CLI) | payer MEDICARE, BC | END 2021-05-19 09:07 | disposition home or self-care (01) | LOC: BICMAMMO 09:06 | PROVIDERS: ATTEND Internal Medicine | DX: Z12.31 Encounter for screening mammogram for malignant neoplasm of breast (principal) | CPT/HCPCS: 77063; 77067 ==

== ENCOUNTER 2021-06-21 11:46 | Outpatient (CLI) | payer MEDICARE, BC | END 2021-06-21 11:47 | disposition home or self-care (01) | LOC: BICRAD 11:46 | PROVIDERS: ATTEND Podiatrist | DX: M25.571 Pain in right ankle and joints of right foot (principal); R60.0 Localized edema ==

== ENCOUNTER 2022-05-21 10:53 | Outpatient (CLI) | payer MEDICARE, BC | END 2022-05-21 10:54 | disposition home or self-care (01) | LOC: BICMAMMO 10:53 | PROVIDERS: ATTEND Family Medicine | DX: Z12.31 Encounter for screening mammogram for malignant neoplasm of breast (principal) | CPT/HCPCS: 77063; 77067 ==

== ENCOUNTER 2022-08-31 08:18 | Outpatient (CLI) | payer MEDICARE, BC | END 2022-08-31 08:19 | disposition home or self-care (01) | LOC: BICULT 08:18 | PROVIDERS: ATTEND Family Medicine | DX: E21.3 Hyperparathyroidism, unspecified (principal) | CPT/HCPCS: 76536 ==

== ENCOUNTER 2022-10-25 09:14 | Inpatient (IN) | payer MEDICARE, BC ==
[2022-10-25] MEDS ORDERED: Acetaminophen 500 MG TAB ONE (10:37)
[2022-10-25] MEDS ORDERED: Lidocaine 1% (PF) 30 ML VIAL ONE (11:26)
[2022-10-25 11:46] LABS: #Lymphocytes 1.5 thou/uL (1.20-3.40); #Monocytes 0.5 thou/uL (0.11-0.59); #Neutrophils 6.6 thou/uL (1.40-6.50); %Basophils 0.4 % (0.0-1.0); %Eosinophils 0.4 % (0.0-10.0); %Lymphocytes 17.4 % (21.0-51.0); %Monocytes 5.9 % (0.0-10.0); %Neutrophils 75.9 % (42.0-75.0); Hemoglobin 14.6 g/dL (12.0-16.0); Mean Corpuscular HGB CONC 34.5 g/dL (32.0-36.0); Mean Corpuscular Hemoglobin 30.8 pg (27.0-31.0); Mean Corpuscular Volume 89.2 fl (78.0-98.0); Mean Platelet Volume 6.8 fL (7.4-10.4); Platelet Count 240 10x3/uL (130-400); RBC Distribution Width 12.2 % (11.5-14.5); Red Blood Cell (RBC) Count 4.75 mill/uL (4.20-5.40); White Blood Cell (WBC) Count 8.7 10x3/uL (4.8-10.8)
[2022-10-25 12:06] LABS: ALT (SGPT) 34 U/L (8-55); AST (SGOT) 21 U/L (5-34); Albumin 3.8 g/dL (3.4-4.8); Alkaline Phosphatase 78 U/L (40-110); Anion Gap 10 mmol/L (10-20); BUN (Urea Nitrogen) 13 mg/dL (9.8-20.1); Bilirubin, Total 1.2 mg/dL (0.2-1.2); Calc. Creatinine Clearance 0 mL/min (70-130); Calcium 10.2 mg/dL (7.8-10.44); Carbon Dioxide 27 mmol/L (23-31); Chloride 102 mmol/L (98-107); Estimated GFR 85; Globulin 2.5 g/dL (2.4-3.5); Glucose 109 mg/dL (83-110); Potassium 4.1 mmol/L (3.5-5.1); Protein, Total 6.3 g/dL (5.8-8.1); Sodium 135 mmol/L (136-145)
[2022-10-25] MEDS ORDERED: Morphine 4 MG/ML VIAL ONE (12:31)
[2022-10-25] MEDS ORDERED: Dexamethasone 10 MG/ML VIAL ONE (12:31)
[2022-10-25] MEDS ORDERED: LORazepam 2 MG/ML SYR.(CARPUJECT) ONE (12:31)
[2022-10-25] MEDS ORDERED: Pantoprazole 40 MG VIAL ONE (12:31)
[2022-10-25] MEDS ORDERED: Ondansetron PF 4 MG/2 ML Vial ONE (12:44)
[2022-10-25 13:39] LABS: INR-International Normal Ratio 0.9
[2022-10-25] MEDS ORDERED: Dextrose 50% Abboject 50 ML SYRINGE SLOW IVP PRN (14:05)
[2022-10-25] MEDS ORDERED: Ondansetron ODT 4 MG TAB PO PRN (14:05)
[2022-10-25] MEDS ORDERED: TETANUS, DIPHTHERIA TOX,ADULT (TDVAX) 0.5 ML VIAL IM ONE (14:05)
[2022-10-25] MEDS ORDERED: Dextrose 5% in Water 1,000 ML IV PRN (14:05)
[2022-10-25] MEDS ORDERED: Ondansetron PF 4 MG/2 ML Vial IVP PRN (14:05)
[2022-10-25] MEDS ORDERED: Labetalol HCl 100 MG/20 ML VIAL SLOW IVP PRN (14:08)
[2022-10-25] MEDS ORDERED: traMADol HCl 50 MG TAB PO PRN (14:10)
[2022-10-25] MEDS ORDERED: Iopamidol-370 76% 500 ML 1 ML ONE (14:46)
[2022-10-25] MEDS ORDERED: Magnevist 469MG/ML 20 ML VIAL ONE (14:50)
[2022-10-25] MEDS ORDERED: levETIRAcetam 500 MG/5 ML VIAL SLOW IVP SCH (15:00)
[2022-10-25] MEDS ORDERED: Acetaminophen 325 MG TAB ONE (17:45)
[2022-10-25] MEDS: Acetaminophen 325 MG TAB PO SCH ×2 (17:53→23:21)
[2022-10-25 18:17] LABS: Bilirubin Negative (Negative); Blood, Urine Negative (Negative); Clarity Clear (Clear); Glucose, Urine (Dipstick) Normal (Negative); Ketone, Urine Negative (Negative); Leukocyte Negative Leu/uL (Negative); Nitrite Negative (Negative); Protein, Urine (Dipstick) Negative (Neg-Trace); Specific Gravity, Urine 1.022 (1.002-1.036); Urobilinogen Normal mg/dL (Less than 2); pH, Urine 6.5 (5.0-9.0)
[2022-10-25] MEDS: Gabapentin 100 MG CAP PO SCH ×2 (18:51→19:53)
[2022-10-25] MEDS: Dexamethasone 4 mg/ml Vial SLOW IVP SCH ×2 (19:51→23:21)
[2022-10-25] MEDS: Atorvastatin Calcium 20 MG TAB PO SCH (19:51)
[2022-10-25] MEDS ORDERED: Gabapentin 300 MG CAP PO SCH (21:00)
[2022-10-25] MEDS ORDERED: levETIRAcetam in NS 1,000 MG in Premix Bag 1 BAG IVPB SCH (21:00)
[2022-10-25] MEDS ORDERED: Famotidine/PF 20 mg/2ml Vial SLOW IVP SCH (21:00)
[2022-10-25] MEDS: levETIRAcetam 500 MG/5 ML VIAL SLOW IVP SCH (21:31)
[2022-10-26 04:07] LABS: #Basophils 0.1 thou/uL (0.0-0.2); #Lymphocytes 1.1 thou/uL (1.20-3.40); #Monocytes 0.2 thou/uL (0.11-0.59); #Neutrophils 8.1 thou/uL (1.40-6.50); %Basophils 0.8 % (0.0-1.0); %Eosinophils 0.2 % (0.0-10.0); %Lymphocytes 11.5 % (21.0-51.0); %Neutrophils 85.6 % (42.0-75.0); Mean Corpuscular HGB CONC 33.7 g/dL (32.0-36.0); Mean Corpuscular Hemoglobin 30.1 pg (27.0-31.0); Mean Corpuscular Volume 89.3 fl (78.0-98.0); Mean Platelet Volume 6.9 fL (7.4-10.4); Platelet Count 241 10x3/uL (130-400); RBC Distribution Width 12.1 % (11.5-14.5); Red Blood Cell (RBC) Count 4.64 mill/uL (4.20-5.40); White Blood Cell (WBC) Count 9.5 10x3/uL (4.8-10.8)
[2022-10-26 04:52] LABS: Anion Gap 14 mmol/L (10-20); BUN (Urea Nitrogen) 13 mg/dL (9.8-20.1); Calc. Creatinine Clearance 73 mL/min (70-130); Calcium 10.2 mg/dL (7.8-10.44); Carbon Dioxide 26 mmol/L (23-31); Chloride 98 mmol/L (98-107); Estimated GFR 83; Glucose 142 mg/dL (83-110); Magnesium 1.7 mg/dL (1.6-2.6); Phosphorus 3.6 mg/dL (2.3-4.7); Potassium 4.1 mmol/L (3.5-5.1); Sodium 134 mmol/L (136-145)
[2022-10-26] MEDS: Acetaminophen 325 MG TAB PO SCH ×3 (05:36→17:00)
[2022-10-26] MEDS: Dexamethasone 4 mg/ml Vial SLOW IVP SCH ×3 (05:36→17:01)
[2022-10-26] MEDS ORDERED: PHOS-NAK 1 PKT PACK PO SCH (07:30)
[2022-10-26] MEDS ORDERED: Magnesium 2 GM/50 ML(in water) 2 GM in Premix Bag 1 BAG IVPB SCH (08:00)
[2022-10-26] MEDS ORDERED: Non-Formulary Item 1 EACH (Omeprazole [Omeprazole] 20 MG Capsule.Dr) PO SCH (09:00)
[2022-10-26] MEDS ORDERED: FLU VACC QS2022-23(65YR UP)/PF 240 MCG/0.7 ML SYRINGE IM ONE (09:00)
[2022-10-26] MEDS ORDERED: Lisinopril 10 MG TAB PO SCH (09:00)
[2022-10-26] MEDS: Senokot S 8.6-50 MG TAB PO SCH ×2 (09:34→19:50)
[2022-10-26] MEDS: Gabapentin 300 MG CAP PO SCH ×3 (09:35→19:51)
[2022-10-26] MEDS: Lisinopril 10 MG TAB PO SCH (09:36)
[2022-10-26] MEDS: Polyethylene Glycol 3350 17 GM Packet PO SCH (09:36)
[2022-10-26] MEDS: levETIRAcetam 500 MG/5 ML VIAL SLOW IVP SCH ×2 (09:36→19:50)
[2022-10-26] MEDS: Acetaminophen/Codeine 30-300mg Tablet PO PRN ×2 (13:52→19:51)
[2022-10-26] MEDS ORDERED: hydrALAZINE 20 MG/ML VIAL SLOW IVP PRN (15:34)
[2022-10-26] MEDS ORDERED: Calcium Carbonate 500 MG ChewTAB PO PRN (16:45)
[2022-10-26] MEDS: Atorvastatin Calcium 20 MG TAB PO SCH (19:51)
[2022-10-27] MEDS: Dexamethasone 4 mg/ml Vial SLOW IVP SCH ×4 (00:28→17:23)
[2022-10-27] MEDS: Acetaminophen 325 MG TAB PO SCH ×4 (00:28→17:22)
[2022-10-27 03:47] VITALS: BMI 28.6
[2022-10-27] MEDS ORDERED: Magnesium 2 GM/50 ML(in water) 2 GM in Premix Bag 1 BAG IVPB SCH (08:30)
[2022-10-27] MEDS ORDERED: PHOS-NAK 1 PKT PACK PO SCH (08:30)
[2022-10-27] MEDS ORDERED: Hydrochlorothiazide 25 MG TAB PO SCH (09:00)
[2022-10-27] MEDS: Gabapentin 300 MG CAP PO SCH ×3 (10:37→20:36)
[2022-10-27] MEDS: Loratadine 10 MG TAB PO SCH (10:37)
[2022-10-27] MEDS: Senokot S 8.6-50 MG TAB PO SCH ×2 (10:38→20:35)
[2022-10-27] MEDS: Polyethylene Glycol 3350 17 GM Packet PO SCH (10:38)
[2022-10-27] MEDS: Lisinopril 10 MG TAB PO SCH (10:39)
[2022-10-27] MEDS: Acetaminophen/Codeine 30-300mg Tablet PO PRN ×2 (10:45→20:38)
[2022-10-27] MEDS: levETIRAcetam 500 MG/5 ML VIAL SLOW IVP SCH ×2 (11:31→20:38)
[2022-10-27] MEDS: Atorvastatin Calcium 20 MG TAB PO SCH (20:37)
[2022-10-28] MEDS: Dexamethasone 4 mg/ml Vial SLOW IVP SCH ×4 (00:35→20:15)
[2022-10-28] MEDS: Acetaminophen 325 MG TAB PO SCH ×4 (04:10→17:15)
[2022-10-28] MEDS: Gabapentin 300 MG CAP PO SCH ×3 (08:38→20:22)
[2022-10-28] MEDS: Senokot S 8.6-50 MG TAB PO SCH ×2 (08:39→20:23)
[2022-10-28] MEDS: levETIRAcetam 500 MG/5 ML VIAL SLOW IVP SCH ×2 (08:39→20:23)
[2022-10-28] MEDS: Metamucil PACK PO SCH (08:39)
[2022-10-28] MEDS: Polyethylene Glycol 3350 17 GM Packet PO SCH (08:39)
[2022-10-28] MEDS: Lisinopril 10 MG TAB PO SCH (08:39)
[2022-10-28] MEDS: Loratadine 10 MG TAB PO SCH (08:40)
[2022-10-28] MEDS: Atorvastatin Calcium 20 MG TAB PO SCH (20:22)
[2022-10-29] MEDS: Acetaminophen 325 MG TAB PO SCH ×4 (00:03→17:22)
[2022-10-29] MEDS: Dexamethasone 4 mg/ml Vial SLOW IVP SCH ×4 (00:04→17:21)
[2022-10-29] MEDS: Metamucil PACK PO SCH (08:22)
[2022-10-29] MEDS: Lisinopril 10 MG TAB PO SCH (08:23)
[2022-10-29] MEDS: Loratadine 10 MG TAB PO SCH (08:23)
[2022-10-29] MEDS: Gabapentin 300 MG CAP PO SCH ×3 (08:24→21:52)
[2022-10-29] MEDS: levETIRAcetam 500 MG/5 ML VIAL SLOW IVP SCH ×2 (08:24→21:54)
[2022-10-29] MEDS: Polyethylene Glycol 3350 17 GM Packet PO SCH (10:09)
[2022-10-29] MEDS: Senokot S 8.6-50 MG TAB PO SCH ×2 (10:09→21:55)
[2022-10-29] MEDS: Atorvastatin Calcium 20 MG TAB PO SCH (21:52)
[2022-10-30] MEDS: Acetaminophen 325 MG TAB PO SCH ×5 (00:08→23:43)
[2022-10-30] MEDS: Dexamethasone 4 mg/ml Vial SLOW IVP SCH ×5 (00:09→23:45)
[2022-10-30 04:44] LABS: #Eosinphils 0.1 thou/uL (0.0-0.7); #Lymphocytes 1.6 thou/uL (1.20-3.40); #Monocytes 0.6 thou/uL (0.11-0.59); #Neutrophils 8.5 thou/uL (1.40-6.50); %Eosinophils 0.9 % (0.0-10.0); %Lymphocytes 14.4 % (21.0-51.0); %Monocytes 5.6 % (0.0-10.0); %Neutrophils 79.1 % (42.0-75.0); Hemoglobin 14.4 g/dL (12.0-16.0); Mean Corpuscular HGB CONC 35.6 g/dL (32.0-36.0); Mean Corpuscular Hemoglobin 32.4 pg (27.0-31.0); Mean Platelet Volume 7.1 fL (7.4-10.4); Platelet Count 264 10x3/uL (130-400); RBC Distribution Width 12.2 % (11.5-14.5); Red Blood Cell (RBC) Count 4.43 mill/uL (4.20-5.40); White Blood Cell (WBC) Count 10.8 10x3/uL (4.8-10.8)
[2022-10-30 05:04] LABS: Anion Gap 12 mmol/L (10-20); BUN (Urea Nitrogen) 16 mg/dL (9.8-20.1); Calc. Creatinine Clearance 74 mL/min (70-130); Calcium 9.9 mg/dL (7.8-10.44); Carbon Dioxide 25 mmol/L (23-31); Chloride 101 mmol/L (98-107); Estimated GFR 85; Glucose 120 mg/dL (83-110); Phosphorus 2.7 mg/dL (2.3-4.7); Potassium 4.6 mmol/L (3.5-5.1); Sodium 133 mmol/L (136-145)
[2022-10-30 05:19] LABS: Prothrombin Time 13.9 sec (12.0-14.7)
[2022-10-30 05:20] LABS: PTT 28.1 sec (22.9-36.1)
[2022-10-30] MEDS ORDERED: CEFAZOLIN 2 GM in Sodium Chloride 0.9% 100 ML IVPB SCH (07:00)
[2022-10-30] MEDS: Gabapentin 300 MG CAP PO SCH ×3 (08:15→20:59)
[2022-10-30] MEDS: levETIRAcetam 500 MG/5 ML VIAL SLOW IVP SCH ×2 (08:16→20:00)
[2022-10-30] MEDS ORDERED: Lidocaine 1% MPF 2 ML VIAL ONE (09:54)
[2022-10-30] MEDS: Loratadine 10 MG TAB PO SCH (10:22)
[2022-10-30] MEDS: Lisinopril 10 MG TAB PO SCH ×2 (10:22→10:24)
[2022-10-30] MEDS: Polyethylene Glycol 3350 17 GM Packet PO SCH (10:22)
[2022-10-30] MEDS: Metamucil PACK PO SCH (10:23)
[2022-10-30] MEDS: Senokot S 8.6-50 MG TAB PO SCH ×2 (10:23→21:01)
[2022-10-30] MEDS ORDERED: Neomycin-Polymyxin 1 ML AMP ONE ×2 (11:28→14:08)
[2022-10-30] MEDS ORDERED: Bacitracin Zinc Ointment 30 gm TUBE ONE (11:28)
[2022-10-30] MEDS ORDERED: Bupivacaine HCl 0.5%/Epinephrine 1:200,000/PF 30 ml Vial ONE (11:28)
[2022-10-30] MEDS ORDERED: Thrombin 5000 UNITS/5 ML VIAL ONE (11:28)
[2022-10-30] MEDS ORDERED: Dexmedetomidine 200 MCG/2 ML VIAL ONE (11:43)
[2022-10-30] MEDS ORDERED: Albumin 5% 500 ML ONE (11:43)
[2022-10-30] MEDS ORDERED: Propofol 1,000 MG/100 ML VIAL IV ONE (11:43)
[2022-10-30] MEDS ORDERED: Vecuronium 10 MG VIAL ONE (11:43)
[2022-10-30] MEDS ORDERED: fentaNYL PF 100 MCG/2 ML SYRINGE ONE (11:44)
[2022-10-30] MEDS ORDERED: Promethazine HCl 25 MG/ML VIAL IM PRN (12:12)
[2022-10-30] MEDS ORDERED: Mag-Al 1200 mg/1200 mg/30 ML UDCUP PO PRN (12:12)
[2022-10-30] MEDS ORDERED: hydrALAZINE 20 MG/ML VIAL SLOW IVP PRN (12:12)
[2022-10-30] MEDS ORDERED: Docusate 100 MG CAP PO PRN (12:12)
[2022-10-30] MEDS ORDERED: Labetalol HCl 100 MG/20 ML VIAL SLOW IVP PRN ×2 (12:12→16:31)
[2022-10-30] MEDS ORDERED: Sodium Chloride 0.9% 100 ML ONE (12:22)
[2022-10-30] MEDS ORDERED: CEFAZOLIN 2 GM VIAL ONE (12:22)
[2022-10-30] MEDS ORDERED: Ondansetron PF 4 MG/2 ML Vial ONE (12:39)
[2022-10-30] MEDS ORDERED: Lidocaine 1% PF 5 ML VIAL ONE (12:39)
[2022-10-30] MEDS ORDERED: PHENYLEPHRINE-NS 100 MCG/ML 10 ML SYRINGE ONE (12:39)
[2022-10-30] MEDS ORDERED: PROPOFOL 200 MG/20 ML VIAL ONE (12:39)
[2022-10-30] MEDS ORDERED: Dexamethasone 20 MG/5 ML VIAL ONE (12:39)
[2022-10-30] MEDS ORDERED: Rocuronium Bromide 10 MG/ML (10ML VIAL) ONE (12:39)
[2022-10-30] MEDS ORDERED: SUGAMMADEX SODIUM 200 MG/2 ML VIAL ONE (16:26)
[2022-10-30] MEDS: hydrALAZINE 20 MG/ML VIAL SLOW IVP PRN (17:44)
[2022-10-30] MEDS ORDERED: Dexamethasone 4 mg/ml Vial SLOW IVP SCH (18:00)
[2022-10-30] MEDS: niCARdipine 25 MG in Sodium Chloride 0.9% 250 ML 250 ML IVPB SCH ×3 (18:06→23:54)
[2022-10-30] MEDS: CEFAZOLIN 2 GM in Sodium Chloride 0.9% 100 ML IVPB SCH (20:48)
[2022-10-30] MEDS: Acetaminophen/Codeine 30-300mg Tablet PO PRN (20:57)
[2022-10-30] MEDS: Atorvastatin Calcium 20 MG TAB PO SCH (21:04)
[2022-10-30] MEDS: Morphine 2 MG/ML VIAL SLOW IVP PRN ×2 (22:05→23:44)
[2022-10-31] MEDS: niCARdipine 25 MG in Sodium Chloride 0.9% 250 ML 250 ML IVPB SCH (05:31)
[2022-10-31] MEDS: Acetaminophen 325 MG TAB PO SCH ×4 (05:32→23:52)
[2022-10-31] MEDS: CEFAZOLIN 2 GM in Sodium Chloride 0.9% 100 ML IVPB SCH (05:32)
[2022-10-31] MEDS: Dexamethasone 4 mg/ml Vial SLOW IVP SCH ×4 (05:33→23:52)
[2022-10-31] MEDS: Morphine 2 MG/ML VIAL SLOW IVP PRN ×3 (07:36→19:57)
[2022-10-31] MEDS: levETIRAcetam 500 MG/5 ML VIAL SLOW IVP SCH ×2 (07:38→19:56)
[2022-10-31] MEDS: Loratadine 10 MG TAB PO SCH (07:38)
[2022-10-31] MEDS: Gabapentin 300 MG CAP PO SCH ×3 (07:38→19:54)
[2022-10-31] MEDS: Lisinopril 10 MG TAB PO SCH (07:39)
[2022-10-31] MEDS: Polyethylene Glycol 3350 17 GM Packet PO SCH (07:39)
[2022-10-31] MEDS: Senokot S 8.6-50 MG TAB PO SCH ×2 (07:39→19:56)
[2022-10-31] MEDS: Metamucil PACK PO SCH (07:39)
[2022-10-31] MEDS: Acetaminophen/Codeine 30-300mg Tablet PO PRN ×2 (07:40→15:29)
[2022-10-31] MEDS ORDERED: Sodium Chloride 0.9% (PF) 10 ML VIAL FS PRN (08:15)
[2022-10-31] MEDS: Pantoprazole 40 MG VIAL IVP SCH (09:54)
[2022-10-31] MEDS: hydrALAZINE 20 MG/ML VIAL SLOW IVP PRN (14:04)
[2022-10-31] MEDS: Atorvastatin Calcium 20 MG TAB PO SCH (19:54)
[2022-11-01 04:57] LABS: #Monocytes 1.4 thou/uL (0.11-0.59); #Neutrophils 10.9 thou/uL (1.40-6.50); %Eosinophils 0.2 % (0.0-10.0); %Lymphocytes 7.2 % (21.0-51.0); %Monocytes 10.6 % (0.0-10.0); Hemoglobin 11.2 g/dL (12.0-16.0); Mean Corpuscular HGB CONC 33.6 g/dL (32.0-36.0); Mean Corpuscular Hemoglobin 30.6 pg (27.0-31.0); Mean Corpuscular Volume 91.1 fl (78.0-98.0); Mean Platelet Volume 6.9 fL (7.4-10.4); Platelet Count 212 10x3/uL (130-400); RBC Distribution Width 12.4 % (11.5-14.5); Red Blood Cell (RBC) Count 3.66 mill/uL (4.20-5.40); White Blood Cell (WBC) Count 13.3 10x3/uL (4.8-10.8)
[2022-11-01] MEDS: Dexamethasone 4 mg/ml Vial SLOW IVP SCH ×3 (06:10→18:09)
[2022-11-01] MEDS: Acetaminophen 325 MG TAB PO SCH ×3 (06:11→16:24)
[2022-11-01] MEDS ORDERED: Cepastat Lozenges 1 LOZ PO PRN (06:28)
[2022-11-01] MEDS: Metamucil PACK PO SCH (09:13)
[2022-11-01] MEDS: Pantoprazole 40 MG VIAL IVP SCH (09:15)
[2022-11-01] MEDS: Lisinopril 10 MG TAB PO SCH (09:15)
[2022-11-01] MEDS: levETIRAcetam 500 MG/5 ML VIAL SLOW IVP SCH ×2 (09:16→20:03)
[2022-11-01] MEDS: Gabapentin 300 MG CAP PO SCH ×3 (09:16→20:05)
[2022-11-01] MEDS: Senokot S 8.6-50 MG TAB PO SCH ×2 (09:19→20:04)
[2022-11-01] MEDS: Polyethylene Glycol 3350 17 GM Packet PO SCH (09:20)
[2022-11-01] MEDS: Loratadine 10 MG TAB PO SCH (09:21)
[2022-11-01] MEDS: hydrALAZINE 20 MG/ML VIAL SLOW IVP PRN ×2 (11:29→16:36)
[2022-11-01] MEDS ORDERED: Chloraseptic Spray 180 ml Bottle PO PRN (12:00)
[2022-11-01] MEDS ORDERED: Dexamethasone 4 mg/ml Vial SLOW IVP SCH (12:00)
[2022-11-01] MEDS: Atorvastatin Calcium 20 MG TAB PO SCH (20:04)
[2022-11-01] MEDS: Acetaminophen/Codeine 30-300mg Tablet PO PRN (20:20)
[2022-11-02] MEDS: Dexamethasone 4 mg/ml Vial SLOW IVP SCH ×4 (01:05→17:39)
[2022-11-02] MEDS: Acetaminophen 325 MG TAB PO SCH ×4 (01:43→17:39)
[2022-11-02] MEDS: levETIRAcetam 500 MG/5 ML VIAL SLOW IVP SCH (08:31)
[2022-11-02] MEDS: Senokot S 8.6-50 MG TAB PO SCH (08:31)
[2022-11-02] MEDS: Gabapentin 300 MG CAP PO SCH ×2 (08:31→15:06)
[2022-11-02] MEDS: Lisinopril 10 MG TAB PO SCH (08:32)
[2022-11-02] MEDS: Loratadine 10 MG TAB PO SCH (08:32)
[2022-11-02] MEDS: Polyethylene Glycol 3350 17 GM Packet PO SCH (08:33)
[2022-11-02] MEDS: Metamucil PACK PO SCH (08:33)
[2022-11-02] MEDS: Pantoprazole 40 MG VIAL IVP SCH (08:33)
[2022-11-02] MEDS ORDERED: Bisacodyl 10 MG SUPP PR PRN (09:00)
[2022-11-02 12:49] VITALS: TEMP 97.8
[2022-11-02 16:50] VITALS: BP 137/62
[2022-11-03] MEDS ORDERED: Dexamethasone 4 mg/ml Vial SLOW IVP SCH ×2 (06:00→18:00)
[2022-11-05] MEDS ORDERED: Dexamethasone 4 mg/ml Vial SLOW IVP SCH ×2 (12:00→18:00)
== END 2022-11-02 18:51 | disposition home health service (06) | DRG 25 ==
LOC: ERS 09:14 → ERHOLD 13:06 → IMCU/EMU 18:43 → SURG A 10-26 16:05 → CCU 10-30 14:04 → SURG B 11-01 18:46
PROVIDERS: ADMIT Surgery; ATTEND Surgery
PROC: 2W3CX1Z Immobilization of Right Lower Arm using Splint (ICD-10-PCS; 2022-10-25)
PROC: 00B70ZZ Excision of Cerebral Hemisphere, Open Approach (ICD-10-PCS; principal; 2022-10-30)
PROC: 30233J1 Transfusion of Nonautologous Serum Albumin into Peripheral Vein, Percutaneous Approach (ICD-10-PCS; 2022-10-30)
DX: D32.0 Benign neoplasm of cerebral meninges (principal); G93.5 Compression of brain; G93.6 Cerebral edema; I62.01 Nontraumatic acute subdural hemorrhage; S52.501A Unspecified fracture of the lower end of right radius, initial encounter for closed fracture; S59.001A Unspecified physeal fracture of lower end of ulna, right arm, initial encounter for closed fracture; N17.9 Acute kidney failure, unspecified; I10 Essential (primary) hypertension; Z96.651 Presence of right artificial knee joint; K21.9 Gastro-esophageal reflux disease without esophagitis; W18.30XA Fall on same level, unspecified, initial encounter; G50.0 Trigeminal neuralgia; Z20.822 Contact with and (suspected) exposure to COVID-19; F41.9 Anxiety disorder, unspecified; F32.A Depression, unspecified; E78.5 Hyperlipidemia, unspecified; Z98.890 Other specified postprocedural states; Z90.710 Acquired absence of both cervix and uterus; Z90.89 Acquired absence of other organs; Z90.49 Acquired absence of other specified parts of digestive tract; Z79.899 Other long term (current) drug therapy; Z88.6 Allergy status to analgesic agent; Z88.8 Allergy status to other drugs, medicaments and biological substances; Z82.49 Family history of ischemic heart disease and other diseases of the circulatory system; Z83.3 Family history of diabetes mellitus; Z80.0 Family history of malignant neoplasm of digestive organs; Z98.41 Cataract extraction status, right eye; Z98.42 Cataract extraction status, left eye; Z79.82 Long term (current) use of aspirin; Y92.099 Unspecified place in other non-institutional residence as the place of occurrence of the external cause
CPT/HCPCS: 25605; 36415; 70450; 70486; 70553; 71260; 72125; 74178; 80048; 80053; 81003; 83735; 84100; 84484; 85025; 85610; 85730; 86850; 86900; 86901; 88307; 88331; 88334; 88341; 88342; 88360; 90714; 93005; 93010; 93306; 93880; 93970; 96374; 96375; A9579; C1713; C9113; G0390; J0360; J1100; J1642; J1953; J2001; J2060; J2270; J2272; J2405; J2704; J3475; J3490; J7050; P9045; Q9967; S0028; U0003; U0005

== ENCOUNTER 2023-01-24 08:18 | Outpatient (CLI) | payer MEDICARE, BC | END 2023-01-24 08:19 | disposition home or self-care (01) | LOC: TBSIIMAG 08:18 | PROVIDERS: ATTEND Neurological Surgery | DX: D32.9 Benign neoplasm of meninges, unspecified (principal); Z98.890 Other specified postprocedural states | CPT/HCPCS: 70553 ==

== ENCOUNTER 2023-09-03 08:58 | Outpatient (CLI) | payer MEDICARE, BC | END 2023-09-03 08:59 | disposition home or self-care (01) | LOC: NM 08:58 | PROVIDERS: ATTEND Family Medicine | DX: E21.3 Hyperparathyroidism, unspecified (principal); J98.4 Other disorders of lung; E07.89 Other specified disorders of thyroid; R94.8 Abnormal results of function studies of other organs and systems | CPT/HCPCS: 78072; A9500 ==

== ENCOUNTER 2023-09-12 10:59 | Outpatient (CLI) | payer MEDICARE, BC | END 2023-09-12 11:00 | disposition home or self-care (01) | LOC: BICMAMMO 10:59 | PROVIDERS: ATTEND Family Medicine | DX: Z12.31 Encounter for screening mammogram for malignant neoplasm of breast (principal) | CPT/HCPCS: 77063; 77067 ==

== ENCOUNTER 2023-11-13 09:11 | Outpatient (CLI) | payer MEDICARE, BC | END 2023-11-13 09:12 | disposition home or self-care (01) | LOC: NM 09:11 | PROVIDERS: ATTEND Otolaryngology Plastic Surgery within the Head & Neck | DX: D35.1 Benign neoplasm of parathyroid gland (principal); E83.52 Hypercalcemia; E04.2 Nontoxic multinodular goiter; R91.8 Other nonspecific abnormal finding of lung field | CPT/HCPCS: 70492; 78072; A9500 ==

== ENCOUNTER 2024-02-11 09:51 | Outpatient (CLI) | payer MEDICARE, BC ==
[2024-02-11] MEDS ORDERED: Magnevist 469MG/ML 20 ML VIAL ONE (11:20)
== END 2024-02-11 09:52 | disposition home or self-care (01) ==
LOC: MRI 09:51
PROVIDERS: ATTEND Neurological Surgery
DX: D32.9 Benign neoplasm of meninges, unspecified (principal); Z98.890 Other specified postprocedural states
CPT/HCPCS: 70553

== ENCOUNTER 2025-09-15 09:00 | Outpatient (CLI) | payer MEDICARE, BC | END 2025-09-15 09:01 | disposition home or self-care (01) | LOC: BICMAMMO 09:00 | PROVIDERS: ATTEND Family Medicine | DX: Z12.31 Encounter for screening mammogram for malignant neoplasm of breast (principal) | CPT/HCPCS: 77063; 77067 ==